=== PATIENT | female | born 1945 | race Caucasian/White ===

== ENCOUNTER 2025-06-21 19:45 | Emergency (ER) | payer MEDICARE ==
[2025-06-21] MEDS: Ketorolac 30 MG/ML SDV IM ONE (20:47)
== END 2025-06-21 21:10 | disposition home or self-care (01) ==
LOC: SUPCPDRO 19:45 → LB.ED 19:45
DX: M51.360 Other intervertebral disc degeneration, lumbar region with discogenic back pain only (principal); I10 Essential (primary) hypertension; Z79.899 Other long term (current) drug therapy
CPT/HCPCS: 96372; 99283; A9270; J1885